=== PATIENT | male | born 1995 | race American Indian/Alaskan Native ===

== ENCOUNTER 2018-03-08 11:10 | Emergency (ER) | payer SELFPAY ==
[2018-03-08 11:30] VITALS: BP 110/70
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
== END 2018-03-08 13:17 | disposition home or self-care (01) ==
LOC: ED 11:10
DX: M54.6 Pain in thoracic spine (principal); F17.200 Nicotine dependence, unspecified, uncomplicated
CPT/HCPCS: 99282